=== PATIENT | female | born 1945 | race American Indian/Alaskan Native ===

== ENCOUNTER → 2016-07-21 | Day surgery (SDC) | payer MEDICARE ==
[~2016-07-21] MED LIST: ASPI-482 PO; EPHEDRINE PF IN SALINE 50 MG/5 ML DISP.SYRIN. IV ONE; IV RINGERS,LACTATED 1000ML 1,000 ML IV SCH; LEVO88TA4 PO; LIDOCAINE 2% PF Vial for OR 5 ML VIAL. ONE; LOSA100T6 PO; METO-269 PO; OMEP20TA PO; PROPOFOL 40 ML IV ONE; RANI300C PO; SIMV20TA3 PO
[2016-07-21 10:25] VITALS: BP 116/75
--- NOTE | 2016-07-22 14:31 | PATHOLOGY ---
PATHOLOGY REPORT * * * * * * * * FINAL DIAGNOSIS: A. Small bowel biopsy: - No significant pathologic abnormalities. B. Gastric biopsy, antrum: - Chronic gastritis, mild to moderate. C. Esophageal biopsy, distal esophagus: - Segments of hyperplastic squamous esophageal mucosa, esophagogastric mucosa, and gastric mucosa showing moderate chronic inflammation, consistent with reflux. D. Esophageal biopsy, mid esophagus: - Segments of hyperplastic squamous esophageal mucosa, consistent with reflux. COMMENT: Sections of the small bowel biopsy reveal segments of duodenal and small intestine mucosa. Where best oriented, the mucosal villi appear normal. There are no sprue-like changes or significant inflammatory changes. Sections of the gastric antral biopsy show congestion and mild to moderate chronic inflammation. An immunoperoxidase stain for Helicobacter is obtained. There are no Helicobacter organisms identified. Sections of the distal esophageal biopsy reveal segments of tangentially oriented hyperplastic squamous esophageal mucosa, esophagogastric mucosa, and gastric mucosa showing moderate chronic inflammation. The findings are consistent with reflux. There is no evidence of Castillo's change, dysplasia, or malignancy. Sections of the middle esophageal biopsy reveal segments of tangentially oriented hyperplastic squamous esophageal mucosa consistent with reflux. There is no evidence of Castillo's change, dysplasia, or malignancy. (JPM:mgcele; d/t: 07/22/16) Special Stain Performed: Immunoperoxidase stain for Helicobacter (B1) REPORT ELECTRONICALLY SIGNED BY: Aristides Hawley M.D. DATE/TIME: 07/22/2016 14:30 * * * * * * * * GROSS PATHOLOGY: A. Received in formalin labeled "Sequeira, Sylvie and small bowel," are 4 segments of rizvi soft tissue measuring 1.5 x 0.3 x 0.2 cm in aggregate dimensions and ranging from 0.2 to 0.5 cm in maximum dimension. The specimen is submitted entirely in cassette A1. B. Received in formalin labeled "Sequeira, Sylvie and gastric antrum," are 2 segments of rizvi soft tissue measuring 0.8 x 0.3 x 0.2 cm in aggregate dimensions and measuring 0.3 and 0.5 cm in maximum dimension. The specimen is submitted entirely in cassette B1. C. Received in formalin labeled "Sequeira, Sylvie and distal esophagus," are 4 segments of rizvi soft tissue measuring 1.9 x 0.2 x 0.2 cm in aggregate dimensions and ranging from 0.4 to 0.6 cm in maximum dimension. The specimen is submitted entirely in cassette C1. D. Received in formalin labeled "Sylvie Sequeira and mid esophagus," are 2 segments of rizvi soft tissue measuring 0.6 x 0.2 x 0.2 cm in aggregate dimensions and measuring 0.2 and 0.4 cm in maximum dimension. The specimen is submitted entirely in cassette D1. (TTL; 07/21/2016) INITIAL CPT CODE(S): A; 73665 B; 69746, 08100 C; 14187 D; 84082 Professional services performed [place] [facility] [place] [address] Technical services performed by [facility] at [address] [place] [address], [facility] [address], [place] [address]. SPECIMEN(S) RECEIVED: A.Small bowel B.Gastric antrum C.Distal esophagus D.Mid esophagus CLINICAL HISTORY: Dysphagia PATIENT: SYLVIE SEQUEIRA /AGE: 1204/16/1945 (Age: 71) PATIENT #: [id number] ALT CASE #: SPECIMEN COLLECTION DATE: 07/21/2016 SPECIMEN RECEIVED DATE: 07/21/2016 [facility] - [address] [place] [address] - PHONE: [phone] * * * END OF REPORT * * *
== END | disposition home or self-care (01) ==
LOC: SURG 07:56
PROVIDERS: ATTEND Internal Medicine Gastroenterology
DX: Z12.11 Encounter for screening for malignant neoplasm of colon (principal); K64.0 First degree hemorrhoids; K57.30 Diverticulosis of large intestine without perforation or abscess without bleeding; K22.70 Barrett's esophagus without dysplasia; K21.0 Gastro-esophageal reflux disease with esophagitis; K31.9 Disease of stomach and duodenum, unspecified; E66.9 Obesity, unspecified; I10 Essential (primary) hypertension; E78.5 Hyperlipidemia, unspecified; Z72.89 Other problems related to lifestyle; Z83.3 Family history of diabetes mellitus
CPT/HCPCS: 43239; 43450; G0105; J2704; 88305; 88342; G0641